=== PATIENT | male | born 1960 | race Caucasian/White ===

== ENCOUNTER → 2020-02-22 09:03 | Outpatient (CLI) | payer BC, SELFPAY ==
--- NOTE | 2020-02-22 09:15 | RAD_ITS ---
PROCEDURE: Fluoroscopic guided right shoulder Injection DATE: February 22, 2020. INDICATION: Male, 59 years old. Chronic shoulder pain. PHYSICIAN: Andre Naqvi M.D. MEDICATIONS: 80 mg of Kenalog and 3 cc of 1% lidocaine. 2% Lidocaine administered subcutaneously for local anesthesia. ACCESS SITE: Right shoulder. NEEDLE: 22-gauge spinal needle. FLUOROSCOPY TIME (if supplied): (0:49) minutes/seconds FINDINGS: The risks, benefits, and alternatives to the procedure were explained to the patient. The specific risks of bleeding, infection, and neurovascular injury were detailed and accepted. Witnessed informed consent was obtained. A 22-gauge needle was positioned under radiographic fluoroscopic localization. Approximately 2 cc of Isovue-300 instilled for localization purposes. Medication was then injected. The patient tolerated the procedure well without any immediate complications. RAD/Inj/Asp Talat Jt Should/Hip/Knee IMPRESSION: 1. Successful fluoroscopic guided right shoulder injection. Electronically Signed: Andre Naqvi, at 10:11 EDT , Service support ,
== END ==
PROVIDERS: PCP Family Medicine; Referring Provider Orthopaedic Surgery; Visit Provider Orthopaedic Surgery
DX: M19.011 Primary osteoarthritis, right shoulder (principal)
CPT/HCPCS: 20610; 77002; Q9967